=== PATIENT | female | born 1985 | race Caucasian/White ===

== ENCOUNTER 2022-05-05 19:12 | Emergency (ER) | payer OTHER, SELFPAY ==
[2022-05-05 19:22] VITALS: BP 122/76; PULSE 73; RESP 18; TEMP 37; O2SAT 98; BMI 21.9
--- NOTE | 2022-05-05 19:41 | ED_ITS ---
HPI - General Adult General Chief complaint: Sore Throat Stated complaint: Sore Throat Time Seen by Provider: 05/05/22 19:36 History of Present Illness HPI narrative: This 37-year-old female comes in reporting a sore throat that began today. She states that she saw few white spots on the back of her throat also. She does not report any fevers. She has not had any cough for nasal congestion. She does not report any ear pain. She wonders if she might have strep pharyngitis. Related Data Home Medications Medication Instructions Recorded Confirmed citalopram 40 mg tablet mg 05/05/22 Allergies Allergy/AdvReac Type Severity Reaction Status Date / Time fluconazole Allergy Verified 05/05/22 19:25 Review of Systems Status of ROS: Reports: 10 or more systems reviewed and unremarkable except as noted in History and below Narrative: Constitutional: No fevers, no weight gain or loss. Eyes: No discharge. No vision changes. HENT: No congestion, no ear pain. Sore throat as described above. Cardiovascular: No chest pain, no palpitations. Respiratory: No shortness of breath, no wheezes, no cough. Gastrointestinal: No abdominal pain, no vomiting, no diarrhea. Genitourinary: No dysuria, no hematuria. Musculoskeletal: Normal range of motion. Skin: No rashes, no pruritis. Neurological: No dizziness, weakness, sensory change, speech change. Endo/Heme/Allergies: No bruising or bleeding. No polydipsia. Pysch: no suicidality, no anxiety, no insomnia. All other systems reviewed and are negative. [facility] History Smoking Status: Current every day smoker How often do you have a drink containing alcohol: monthly or less AUDIT-C Alcohol total score: 1 Non-prescribed substance use: denies use Exam Narrative: Exam Narrative: Constitutional: Well-developed, well-nourished, no acute distress. HEENT: Normocephalic, atraumatic. Oropharynx has erythema with no tonsillar hypertrophy. There are few white spots on the right tonsil that are likely part of tonsillar crypts. There is no obvious purulence. Neck: Normal range of motion. Nontender. Supple. Heart: Regular. No murmurs. Normal rate. Intact distal pulses. Lungs: Clear to auscultation. No chest discomfort. No wheezes, rhonchi, or rales. Abdomen: Normal bowel sounds. Nontender. No rebound tenderness. Genitalia: Deferred. Back: No midline tenderness. Normal range of motion. Extremities: Normal range of motion. No injury. Skin: Intact. No rash. Warm. No erythema or pallor. Neurologic: No altered sensation. No weakness. Alert and oriented. Psychiatric: No suicidality. No anxiety or depression. No insomnia. Nursing notes and vitals signs are reviewed. Const: Vital Signs, click to edit/add: Vital Signs - 24 hr 05/05/22 19:22 Temperature 98.6 F Pulse Rate [Right Pulse Oximeter] 73 Respiratory Rate 18 Blood Pressure [Le ft Upper Arm] 122/76 Pulse Oximetry 98 Oxygen Delivery Me thod Room Air Course Vital Signs Vital signs: Initial Vital Signs Temperature 98.6 F 05/05/22 19:22 Temperature Source Temporal Artery Scan 05/05/22 19:22 Pulse Rate 73 05/05/22 19:22 Respiratory Rate 18 05/05/22 19:22 Blood Pressure 122/76 05/05/22 19:22 Blood Pressure Mean 91 05/05/22 19:22 Blood Pressure Position Sitting 05/05/22 19:22 Pulse Oximetry 98 05/05/22 19:22 Oxygen Delivery Method 05/05/22 19:22 Vital Signs Temperature 98.6 F 05/05/22 19:22 Pulse Rate 73 05/05/22 19:22 Respiratory Rate 18 05/05/22 19:22 Blood Pressure 122/76 05/05/22 19:22 Pulse Oximetry 98 05/05/22 19:22 Oxygen Delivery Method 05/05/22 19:22 Temperature 98.6 F 05/05/22 19:22 Pulse Rate 73 05/05/22 19:22 Respiratory Rate 18 05/05/22 19:22 Blood Pressure 122/76 05/05/22 19:22 Pulse Oximetry 98 05/05/22 19:22 Oxygen Delivery Method 05/05/22 19:22 Medical Decision Making MDM Narrative Medical decision making narrative: This patient comes in with a sore throat and PCR testing for strep pharyngitis r eturns positive. The patient received a prescription for amoxicillin. She is encouraged to use [id number] medicines also as needed and directed for symptomatic relief. Lab Data Labs: Lab Results 05/05/22 Range/Units 19:40 Group A Strep DNA DETECTED A (No Detected) Discharge Plan Discharge Clinical Impression: Acute streptococcal pharyngitis Patient Disposition: Home, Self-Care Condition: Stable Instructions: Strep Throat (ED) Additional Instructions: Take medication as prescribed. Use [id number] medicines also as needed and directed. Follow up with MD or return if worsening. Prescriptions: No Action citalopram 40 mg tablet Label Comments: TAKE 1 TABLET BY MOUTH DAILY Follow Up/Referrals: Loan Wang, BREAST PULLER, REJECTED ITEMS CLERK [Primary Care Provider] - Stand Alone Forms: [employer] Info Instructions
[2022-05-05 20:28] LABS: Strep A DNA Probe* DETECTED (No Detected)
== END 2022-05-05 20:59 | disposition home or self-care (01) ==
PROVIDERS: Emergency Provider Emergency Medicine Emergency Medical Services; PCP Nurse Practitioner Family
DX: J02.0 Streptococcal pharyngitis (principal)
CPT/HCPCS: 87651; 99283; 99284

== ENCOUNTER 2023-04-26 17:03 | Emergency (ER) | payer OTHER, SELFPAY ==
[2023-04-26 17:06] VITALS: BP 124/67; PULSE 76; RESP 20; TEMP 36.7; O2SAT 100; BMI 21.9
--- NOTE | 2023-04-26 17:41 | ED.CHESTPAIN ---
HPI - Chest Pain General Chief Complaint: Chest Pain Stated Complaint: Chest pain, likely anxiety Time Seen by Provider: 04/26/23 17:06 History of Present Illness HPI narrative: This 38-year-old female comes in reporting intermittent sternal chest pain over the past couple days. She states that it lasts for a few minutes and then dissipates but seems to come and go. She attributes that to anxiety but comes in to have it checked out. She does not report any nausea, vomiting, lightheadedness, shortness of breath, diaphoresis, or exercise intolerance. She states that she is going through a divorce so there is extra stress in her life currently. She does not have hypertension or hyperlipidemia or diabetes but states that she is a smoker and also does have a positive family history of heart disease in her father. Related Data Previous Rx's Medication Instructions Recorded citalopram 40 mg tablet 40 mg PO QDAY 90 days #90 tabs 12/23/22 terbinafine HCl 250 mg tablet 250 mg PO QDAY #90 tabs 02/19/23 Allergies Allergy/AdvReac Type Severity Reaction Status Date / Time fluconazole Allergy Intermediate Facial Verified 04/26/23 17:09 Swelling Review of Systems Status of ROS Reports: 10 or more systems reviewed and unremarkable except as noted in History and below Narrative Constitutional: No fevers, no weight gain or loss. Eyes: No discharge. No vision changes. HENT: No congestion, no sore throat, no ear pain. Cardiovascular: No palpitations. Chest discomfort as described above. Respiratory: No shortness of breath, no wheezes, no cough. Gastrointestinal: No abdominal pain, no vomiting, no diarrhea. Genitourinary: No dysuria, no hematuria. Musculoskeletal: Normal range of motion. Skin: No rashes, no pruritis. Neurological: No dizziness, weakness, sensory change, speech change. Endo/Heme/Allergies: No bruising or bleeding. No polydipsia. Pysch: no suicidality, no anxiety, no insomnia. All other systems reviewed and are negative. [facility] Medical History (Updated 04/26/23 @ 17:47 by Clarence Dean MD) Rh negative status during ?O26.899 - Other specified related conditions, unspecified trimester (ICD-10) ?Z67.91 - Unspecified blood type, rh negative (ICD-10) Nicotine dependence ?F17.200 - Nicotine dependence, unspecified, uncomplicated (ICD-10) History of vitamin D deficiency ?Z86.39 - Personal history of other endocrine, nutritional and metabolic disease (ICD-10) History of placenta previa (2014) ?Z87.59 - Personal history of other complications of , childbirth and the puerperium (ICD-10) History of depression ?Z86.59 - Personal history of other mental and behavioral disorders (ICD-10) History of chronic fatigue ?Z87.898 - Personal history of other specified conditions (ICD-10) History of chlamydia infection ?Z86.19 - Personal history of other infectious and parasitic diseases (ICD-10) History of anxiety ?Z86.59 - Personal history of other mental and behavioral disorders (ICD-10) Endometriosis ?N80.9 - Endometriosis, unspecified (ICD-10) Eczema ?L30.9 - Dermatitis, unspecified (ICD-10) Chronic pelvic pain in female (2013) ?R10.2 - Pelvic and perineal pain (ICD-10) ?G89.29 - Other chronic pain (ICD-10) Abnormal finding on thyroid function test ?R94.6 - Abnormal results of thyroid function studies (ICD-10) Surgical History (Updated 10/16/22 @ 11:27 by Marilynn Simpson) History of placement of ear tubes ?Z96.22 - Myringotomy tube(s) status (ICD-10) History of laparoscopy (2013) ?Z98.890 - Other specified postprocedural states (ICD-10) History of section ?Z98.891 - History of uterine scar from previous surgery (ICD-10) Family History (Updated 12/23/22 @ 15:48 by Loan Wang APRN, PUBLIC RELATIONS STUDIES DIRECTOR) Father Substance abuse Mother Asthma Paternal Grandmother Skin cancer Paternal Grandmother Rheumatoid arthritis Aunt Rheumatoid arthritis Uterine cancer Paternal Grandfather Throat cancer Smoker Son ADHD Autism Anxiety Social History (Updated 12/23/22 @ 15:49 by Loan Wang APRN, PUBLIC RELATIONS STUDIES DIRECTOR) Narrative: . 2 children. Work at [employer]. Alcohol, none. No illicit drug uses. Current everyday smoker 1 pack per day. Smoking Status: Never smoker How often do you have a drink containing alcohol: monthly or less AUDIT-C Alcohol total score: 1 Non-prescribed substance use: denies use Little interest or pleasure in doing things: not at all Feeling down, depressed, or hopeless: several days Exam Narrative Exam Narrative: Constitutional: Well-developed, well-nourished, no acute distress. HEENT: Normocephalic, atraumatic. Neck: Normal range of motion. Nontender. Supple. Heart: Regular. No murmurs. Normal rate. Intact distal pulses. Lungs: Clear to auscultation. No chest discomfort currently. Chest discomfort when occurring is not respond reducible with a deep breath or with palpating a certain area. No wheezes, rhonchi, or rales. Abdomen: Normal bowel sounds. Nontender. No rebound tenderness. Genitalia: Deferred. Back: No midline tenderness. Normal range of motion. Extremities: Normal range of motion. No injury. Skin: Intact. No rash. Warm. No erythema or pallor. Neurologic: No altered sensation. No weakness. Alert and oriented. Psychiatric: No suicidality. She reports some insomnia and has anxiety and depression symptoms. Nursing notes and vitals signs are reviewed. Const Vital Signs, click to edit/add: Vital Signs - 24 hr 04/26/23 17:06 Temperature 98.0 F Pulse Rate [Right Pulse Oximeter] 76 Respiratory Rate 20 Blood Pressure [Right Upper Arm] 124/67 Pulse Oximetry 100 Oxygen Delivery Method Room Air Course Vital Signs Vital signs: Initial Vital Signs Temperature 98.0 F 04/26/23 17:06 Temperature Source Temporal Artery Scan 04/26/23 17:06 Pulse Rate 76 04/26/23 17:06 Respiratory Rate 20 04/26/23 17:06 Blood Pressure 124/67 04/26/23 17:06 Blood Pressure Mean 86 04/26/23 17:06 Blood Pressure Position Sitting 04/26/23 17:06 Pulse Oximetry 100 04/26/23 17:06 Oxygen Delivery Method Room Air 04/26/23 17:06 Vital Signs Temperature 98.0 F 04/26/23 17:06 Pulse Rate 76 04/26/23 17:06 Respiratory Rate 20 04/26/23 17:06 Blood Pressure 124/67 04/26/23 17:06 Pulse Oximetry 100 04/26/23 17:06 Oxygen Delivery Method Room Air 04/26/23 17:06 Temperature 98.0 F 04/26/23 17:06 Pulse Rate 76 04/26/23 17:06 Respiratory Rate 20 04/26/23 17:06 Blood Pressure 124/67 04/26/23 17:06 Pulse Oximetry 100 04/26/23 17:06 Oxygen Delivery Method Room Air 04/26/23 17:06 MDM - Chest Pain MDM Narrative Medical decision making narrative: This patient comes in with chest discomfort as described above. She attributes it to anxiety but comes in to have it checked out. EKG shows normal sinus rhythm without any ST or T-wave abnormalities. This patient does have some risk factors and she is encouraged to stop smoking. Her signs and symptoms do not sound like they are coming from a cardiac cause. I did use bedside ultrasound to do quick screening looks at her heart and lungs and aorta. I did not place an order for this nor did I save any images. I did discuss other labs and imaging options which the patient declined in a process of shared decision making. The patient does have anxiety symptoms and is going through some adjustments currently. I did provide prescription for some tablets of Ativan. Ten tablets were provided through [facility]. She understands that this is a temporary treatment and not a good long-term plan. I also describe signs and symptoms that would indicate need for return and re-evaluation, symptoms related to heart or lung disease. Discharge Plan Discharge Clinical Impression: Anxiety, Atypical chest pain Patient Disposition: Home, Self-Care Condition: Stable Additional Instructions: Take medication as needed and indicated. Follow up with MD or return if symptoms are persistent or worsening. Prescriptions: No Action citalopram 40 mg tablet 40 mg PO QDAY 90 Days Qty: 90 3RF terbinafine HCl 250 mg tablet 250 mg PO QDAY Qty: 90 0RF Follow Up/Referrals: Loan Wang, [employer] SUPPORT, PUBLIC RELATIONS STUDIES DIRECTOR [Primary Care Provider] - Stand Alone Forms: [employer] Info Instructions
== END 2023-04-26 17:56 | disposition home or self-care (01) ==
PROVIDERS: Emergency Provider Emergency Medicine Emergency Medical Services; PCP Nurse Practitioner Family
DX: R07.9 Chest pain, unspecified (principal); F41.9 Anxiety disorder, unspecified
CPT/HCPCS: 93005; 99284